=== PATIENT | female | born 1985 | race Caucasian/White ===

== ENCOUNTER 2017-12-19 11:31 | Emergency (ER) | payer OTHER ==
[~2017-12-19] VITALS: Ht 167.6 cm; Wt 85.6 kg
[~2017-12-19 11:31] MED LIST: METH-356 PO
[2017-12-19 11:45] VITALS: BP 119/70
[2017-12-19] MEDS ORDERED: DEXAMETHASONE 4 MG/ML, 5ML ONE (12:04)
[2017-12-19] MEDS ORDERED: DEXAMETHASONE 4 MG/ML, 1ML PO ONE (12:30)
== END 2017-12-19 12:43 | disposition home or self-care (01) ==
LOC: ED 12:30
DX: B34.9 Viral infection, unspecified (principal); F17.200 Nicotine dependence, unspecified, uncomplicated; R09.81 Nasal congestion
CPT/HCPCS: 71046; 99284; J1100

== ENCOUNTER 2019-04-23 17:18 | Emergency (ER) | payer SELFPAY ==
[~2019-04-23] VITALS: Ht 167.6 cm; Wt 91.7 kg
[~2019-04-23 17:18] MED LIST changes: -METH-356 PO; +METH10TA2 PO
[2019-04-23 17:22] VITALS: BP 134/79
[2019-04-23] MEDS ORDERED: LIDOCAINE-MPF 1%, 5ML ONE (17:32)
== END 2019-04-23 18:13 | disposition home or self-care (01) ==
LOC: ED 17:55
DX: L02.413 Cutaneous abscess of right upper limb (principal)
CPT/HCPCS: 10060; 99283